=== PATIENT | male | born 1965 | race African-American/Black ===

== ENCOUNTER 2016-12-01 19:17 | Emergency (ER) | payer BC, MEDICAID ==
[~2016-12-01] VITALS: Ht 172.7 cm; Wt 95.3 kg
[~2016-12-01 19:17] MED LIST: [UNRECOGNIZED DRUG - OTHER]
[2016-12-01 20:17] LABS: Urine Bilirubin Negative (Negative); Urine Blood TRACE /uL (Negative); Urine Color Yellow (Yellow); Urine Ketone Negative (Negative); Urine Mucus FEW (None Seen); Urine Nitrite Negative (Negative); Urine RBC 2 /hpf (0 - 3); Urine Squamous Epithelial Cell FEW /hpf (<5)
[2016-12-01 20:18] LABS: Urine Glucose 3+ mg/dL (Normal)
[2016-12-01 20:20] LABS: Basophils # (auto) 0.1 uL; Basophils % (auto) 1.9 % (0.0-2.0); Eosinophils # (auto) 0.1 uL; Hematocrit 47.3 % (41.0-53.0); Hemoglobin 15.5 g/dL (13.5-17.5); Lymphocytes # (auto) 2.4 uL; Mean Corpuscular Hemoglobin 30.6 pg (28.0-32.0); Mean Corpuscular Hgb Conc. 32.8 g/dL (32.0-36.0); Mean Corpuscular Volume 93.3 fL (80.0-100.0); Mean Platelet Volume 9.2 fL (7.4-10.4); Monocytes # (auto) 0.5 uL; Monocytes % (auto) 8.3 % (0.0-12.0); Neutrophils # (auto) 3.4 uL; Neutrophils % (auto) 51.8 % (37.0-80.0); Platelet Count (auto) 270 10^3/uL (140-450); Red Cell Distribution Width 13.4 % (11.6-16.0); White Blood Cell 6.6 10^3/uL (4.4-10.8)
[2016-12-01 20:36] LABS: Albumin 3.5 g/dL (3.4-5.0); BUN/Creatinine Ratio 10.1; Calcium 8.8 mg/dL (8.5-10.1); Magnesium 2.1 mg/dL (1.6-2.6); Potassium 4.2 mmol/L (3.5-5.1)
[2016-12-01 20:41] LABS: Bilirubin, Total 0.3 mg/dL (0.2-1.0); Total Protein 7.4 g/dL (6.4-8.2)
[2016-12-01] MEDS ORDERED: IOHEXOL 300 MG/ML 100ML BOTTLE IJ ONE (21:35)
[2016-12-01] MEDS ORDERED: ACETAMINOPHEN 325 MG TAB PO ONE (22:30)
[2016-12-01 22:32] VITALS: BP 145/92
[2016-12-01] MEDS ORDERED: DICYCLOMINE HCL 10 MG CAP PO ONE (23:00)
== END 2016-12-01 23:15 | disposition home or self-care (01) ==
LOC: ER 19:33
DX: K58.9 Irritable bowel syndrome, unspecified (principal); E11.9 Type 2 diabetes mellitus without complications; I10 Essential (primary) hypertension; F17.210 Nicotine dependence, cigarettes, uncomplicated
CPT/HCPCS: 36415; 74177; 80053; 81001; 83690; 83735; 84484; 85025; 93005; 99285; Q9967